=== PATIENT | female | born 1955 | race Caucasian/White ===

== ENCOUNTER → 2022-11-20 | Outpatient (CLI) | payer MEDICARE ==
[~2022-11-20] MED LIST: ALBU8.5H8 IH; BUSP15 PO; FEXO-23 PO; FLUT16H NASAL; PRAV20TA4 PO; SYMB8060 IH
== END | disposition home or self-care (01) ==
LOC: RAH 15:24
PROVIDERS: ATTEND Obstetrics & Gynecology
DX: Z12.31 Encounter for screening mammogram for malignant neoplasm of breast (principal)
CPT/HCPCS: 77067